=== PATIENT | male | born 1950 | race African-American/Black ===

== ENCOUNTER 2018-09-17 07:25 | Emergency (ER) | payer MEDICARE, OTHER ==
[~2018-09-17] VITALS: Ht 172.7 cm; Wt 86.4 kg
[~2018-09-17 07:25] MED LIST: AMLO10TA55 PO; CYAN500 PO; LINA5TAB PO; LISI1TAB11 PO; METF-960 PO; PANT40TA25 PO
[2018-09-17 07:36] VITALS: BP 136/96
[2018-09-17] MEDS ORDERED: BACITRACIN 0.9 GM PACKET OINTMENT TP ONE (08:00)
[2018-09-17] MEDS ORDERED: PERTUSS(ACELL),DIPH,TET VAC/PF 0.5 ML VIAL IM ONE (08:00)
== END 2018-09-17 08:44 | disposition home or self-care (01) ==
LOC: EMS 07:28
DX: S91.011A Laceration without foreign body, right ankle, initial encounter (principal); E11.9 Type 2 diabetes mellitus without complications; I10 Essential (primary) hypertension; Z79.84 Long term (current) use of oral hypoglycemic drugs; Z79.899 Other long term (current) drug therapy; Z98.890 Other specified postprocedural states; X99.9XXA Assault by unspecified sharp object, initial encounter; Y93.89 Activity, other specified; Y92.89 Other specified places as the place of occurrence of the external cause; Y99.8 Other external cause status
CPT/HCPCS: 90471; 90715

== ENCOUNTER 2024-12-16 08:45 | Inpatient (IN) | payer MEDICARE, OTHER ==
[~2024-12-16] VITALS: Ht 172.7 cm; Wt 68.7 kg
[~2024-12-16 08:45] MED LIST changes: -CYAN500 PO; +CYAN500T56 PO; -LINA5TAB PO; +METF-1211 PO; -METF-960 PO; -PANT40TA25 PO
[2024-12-16] MEDS ORDERED: 0.9% SODIUM CHLORIDE 10 ML SYRINGE IVP PRN (09:15)
[2024-12-16] MEDS: ACETAMINOPHEN 500 MG TABLET PO ONE (09:32)
[2024-12-16] MEDS: SODIUM CHLORIDE 0.9% 2,100 ML IV ONE (09:33)
[2024-12-16 09:48] LABS: BASOPHILS % (AUTO) 0.2 % (0.0-2.0); EOSINOPHILS % (AUTO) 0 % (1.0-6.0); HEMATOCRIT 42.2 % (41-53); HEMOGLOBIN 13.6 g/dL (13.5-17.5); LYMPHOCYTES # (AUTO) 0.3 K/uL (1.0-4.8); MEAN CORPUSCULAR HEMOGLOBIN 28.6 pg (26.0-34.0); MEAN CORPUSCULAR HGB CONC 32.1 G/dL (31.0-37.0); MEAN CORPUSCULAR VOLUME 89 fL (80-100); MONOCYTES # (AUTO) 1.4 K/uL (0.1-1.0); MONOCYTES % (AUTO) 10.1 % (2.0-9.0); NEUTROPHILS # (AUTO) 12.2 K/uL (1.8-7.7); PLATELET COUNT (AUTO) 197 K/uL (150-450); RED BLOOD CELL COUNT(AUTO) 4.75 MIL/uL (4.50-5.90); RED CELL DISTRIBUTION WIDTH 15.3 % (11.5-14.5); WHITE BLOOD COUNT (AUTO) 13.9 K/uL (4.5-11.0)
[2024-12-16 09:50] LABS: NEUTROPHILS % (AUTO) 87.7 % (40.0-70.0)
[2024-12-16 09:50] LABS: COVID AG,FIA SOURCE NASAL SWAB
[2024-12-16 09:58] LABS: ANION GAP 12 mmol/L (8-16); CALCIUM, TOTAL 8.8 mg/dL (8.8-10.5); CARBON DIOXIDE 24 mmol/L (22-29); CHLORIDE 104 mmol/L (98-107); CREATININE 1.96 mg/dL (0.60-1.30); GLOMERULAR FILTR. RATE CALC 40 mL/min (>60); GLUCOSE,RANDOM 191 mg/dL (70-110); POTASSIUM 4.6 mmol/L (3.5-5.1); SODIUM SERUM 140 mmol/L (136-145); UREA NITROGEN, BLOOD 37 mg/dL (7-18)
[2024-12-16 10:05] LABS: ALANINE AMINOTRANSFERASE 18 U/L (12-78); ALBUMIN 3.8 g/dL (3.4-5.0); ALKALINE PHOSPHATASE 118 U/L (46-116); ASPARTATE AMINOTRANSFERASE 16 U/L (15-37); BILIRUBIN,TOTAL 0.6 mg/dL (0.1-1.0); TOTAL PROTEIN, SERUM 7.3 g/dL (6.4-8.2)
[2024-12-16 10:09] LABS: LACTIC ACID 2.5 mmol/L (0.4-2.0)
[2024-12-16 10:14] LABS: INFLUENZA TYPE B NEGATIVE FOR TYPE B (NEGATIVE); SARS-COV2 (COVID) ANTIGEN,FIA Negative (Negative)
[2024-12-16 10:21] LABS: INFLUENZA TYPE A POSITIVE FOR TYPE A (NEGATIVE)
[2024-12-16 10:22] LABS: TROPONIN I-HIGH SENSITIVITY 16 ng/L (<76)
[2024-12-16 10:36] LABS: APPEARANCE,URINE CLEAR (CLEAR); BILIRUBIN,URINE NEGATIVE (NEGATIVE); COLOR,URINE LIGHT YELLOW (YELLOW); GLUCOSE, URINE (UA) TRACE mg/dL (NEGATIVE); KETONES,URINE TRACE mg/dL (NEGATIVE); LEUKOCYTE ESTERASE ,URINE NEGATIVE (NEGATIVE); NITRATE,URINE NEGATIVE (NEGATIVE); OCCULT BLOOD,URINE SMALL (NEGATIVE); PROTEIN,URINE 30-70 mg/dL (NEGATIVE); SPECIFIC GRAVITIY, URINE 1.017 (1.003-1.030); UROBILINOGEN,URINE <=1.0 mg/dL (<=1.0)
[2024-12-16 11:01] LABS: BACTERIA,URINE None Seen /HPF (None Seen); RBC,URINE None Seen /HPF (0-2); SQUAMOUS EPITHELIAL CELL,UR Few /LPF (None Seen); WBC,URINE None Seen /HPF (0-5)
[2024-12-16] MEDS: CEFEPIME HCL 2 GM in DEXTROSE 5%-WATER 50 ML IV ONE (11:27)
[2024-12-16] MEDS: VANCOMYCIN 1.5 GM/WATER(PEG) 300 ML IV ONE (11:31)
[2024-12-16] MEDS ORDERED: LOSA-382 PO (16:46)
[2024-12-16] MEDS ORDERED: SPIR50TA27 PO (16:46)
[2024-12-16] MEDS ORDERED: METF-1211 PO (16:46)
[2024-12-16] MEDS ORDERED: CHOL200059 PO (16:46)
[2024-12-16] MEDS ORDERED: SIMV-261 PO (16:46)
[2024-12-16] MEDS ORDERED: DOCU-385 PO (16:46)
[2024-12-16] MEDS ORDERED: DOCUSATE SODIUM 100 MG CAPSULE PO PRN (17:45)
[2024-12-16] MEDS ORDERED: ALBUTEROL SULFATE 2.5 MG/0.5 ML NEB SOLUTION NEB PRN (17:45)
[2024-12-16] MEDS ORDERED: IPRATROPIUM BROMIDE 0.5 MG/2.5 ML NEB SOLUTION NEB PRN (17:45)
[2024-12-16] MEDS ORDERED: MORPHINE SULFATE 2 MG/ML SYRINGE IVP PRN (17:45)
[2024-12-16] MEDS ORDERED: BISACODYL 10 MG RECTAL RECTAL SUPPOSITORY PR PRN (17:45)
[2024-12-16] MEDS ORDERED: ONDANSETRON HCL 4 MG/2 ML VIAL IVP PRN (17:45)
[2024-12-16] MEDS ORDERED: HYDROCODONE/ACETAMINOPHEN 5-325 MG TABLET PO PRN (17:45)
[2024-12-16] MEDS ORDERED: MAGNESIUM HYDROXIDE SUSPENSION 30 ML UDCUP PO PRN (17:45)
[2024-12-16] MEDS: OSELTAMIVIR PHOSPHATE 75 MG CAPSULE PO ONE (18:07)
[2024-12-16] MEDS: PIPERACILLIN/TAZO 3.375 GM/D5W 50 ML IV ONE (18:08)
[2024-12-16] MEDS: ACETAMINOPHEN 325 MG TABLET PO PRN (18:12)
[2024-12-16 18:30] VITALS: BP 133/74; PULSE 116; RESP 18; TEMP 98.6; O2SAT 97
[2024-12-16 19:47] VITALS: BP 128/67; PULSE 103; RESP 18; TEMP 98.2; O2SAT 95
[2024-12-16] MEDS: DOCUSATE SODIUM 100 MG CAPSULE PO SCH (20:22)
[2024-12-16] MEDS: SIMVASTATIN 40 MG TABLET PO SCH (20:22)
[2024-12-16] MEDS: HEPARIN SODIUM,PORCINE 5,000 UNITS/ML VIAL SQ SCH (23:36)
[2024-12-16] MEDS: ZOLPIDEM TARTRATE 5 MG TABLET PO PRN (23:41)
[2024-12-17 05:31] VITALS: BP 131/73; PULSE 115; RESP 18; TEMP 98.3
[2024-12-17 07:50] LABS: CALCIUM, TOTAL 9.1 mg/dL (8.8-10.5); CREATININE 1.84 mg/dL (0.60-1.30); POTASSIUM 5.3 mmol/L (3.5-5.1)
[2024-12-17 08:35] VITALS: BP 124/71; PULSE 120; RESP 18; TEMP 98.7; O2SAT 96
[2024-12-17] MEDS: VANCOMYCIN HCL 1 GM/D5% WATER 200 ML IV SCH (08:48)
[2024-12-17] MEDS: CHOLECALCIFEROL (VIT D3) 2,000 UNITS [50 MCG] TABLET PO SCH (08:49)
[2024-12-17] MEDS: LOSARTAN POTASSIUM 50 MG TABLET PO SCH (08:49)
[2024-12-17] MEDS: OSELTAMIVIR PHOSPHATE 30 MG CAPSULE PO SCH (08:49)
[2024-12-17] MEDS: PANTOPRAZOLE SODIUM 40 MG/VIAL IVP SCH (08:49)
[2024-12-17] MEDS: SPIRONOLACTONE 50 MG TABLET PO SCH (08:49)
[2024-12-17] MEDS ORDERED: SODIUM CHLORIDE 0.9% 500 ML IV ONE (09:06)
[2024-12-17 12:16] VITALS: BP 128/62; PULSE 115; RESP 18; TEMP 97.9; O2SAT 99
[2024-12-17 16:40] VITALS: BP 100/59; PULSE 116; RESP 17; TEMP 98; O2SAT 100
[2024-12-17 20:00] VITALS: BP 109/61; PULSE 121; RESP 18; O2SAT 100
[2024-12-18] VITALS (7 sets, daily range): BP systolic 91–124; BP diastolic 49–78; PULSE 87–105; RESP 17–19; TEMP 97.5–98.6; O2SAT 95–100
[2024-12-18 08:21] LABS: CALCIUM, TOTAL 8.6 mg/dL (8.8-10.5); CREATININE 1.73 mg/dL (0.60-1.30); POTASSIUM 4.7 mmol/L (3.5-5.1); VANCOMYCIN,RANDOM 11.6 mcg/mL (25.0-50.0)
[2024-12-18 11:50] LABS: BASOPHILS % (AUTO) 0.4 % (0.0-2.0); EOSINOPHILS % (AUTO) 0.1 % (1.0-6.0); HEMATOCRIT 39.6 % (41-53); HEMOGLOBIN 12.7 g/dL (13.5-17.5); LYMPHOCYTES # (AUTO) 0.8 K/uL (1.0-4.8); LYMPHOCYTES % (AUTO) 6.7 % (22.0-44.0); MEAN CORPUSCULAR HEMOGLOBIN 28.6 pg (26.0-34.0); MEAN CORPUSCULAR HGB CONC 32.1 G/dL (31.0-37.0); MEAN CORPUSCULAR VOLUME 89 fL (80-100); MONOCYTES # (AUTO) 1.4 K/uL (0.1-1.0); MONOCYTES % (AUTO) 10.7 % (2.0-9.0); NEUTROPHILS # (AUTO) 10.3 K/uL (1.8-7.7); NEUTROPHILS % (AUTO) 82.1 % (40.0-70.0); PLATELET COUNT (AUTO) 167 K/uL (150-450); RED BLOOD CELL COUNT(AUTO) 4.45 MIL/uL (4.50-5.90); RED CELL DISTRIBUTION WIDTH 15.4 % (11.5-14.5); WHITE BLOOD COUNT (AUTO) 12.6 K/uL (4.5-11.0)
[2024-12-19 03:58] VITALS: BP 123/72; PULSE 90; RESP 18; TEMP 97.8; O2SAT 97
[2024-12-19 07:12] LABS: CALCIUM, TOTAL 8.4 mg/dL (8.8-10.5); CREATININE 1.6 mg/dL (0.60-1.30); POTASSIUM 4.4 mmol/L (3.5-5.1)
[2024-12-19] MEDS: VANCOMYCIN 1.25 GM/WATER(PEG) 250 ML IV SCH (07:51)
[2024-12-19 08:26] VITALS: BP 104/62; PULSE 93; RESP 18; TEMP 98.1; O2SAT 100
[2024-12-19 12:04] VITALS: BP 111/60; PULSE 89; RESP 18; TEMP 98.2; O2SAT 98
[2024-12-19 17:25] VITALS: BP 100/59; PULSE 89; RESP 18; TEMP 98.1; O2SAT 98
[2024-12-19 20:15] VITALS: BP 119/73; PULSE 108; RESP 19; O2SAT 98
[2024-12-20 00:30] VITALS: BP 128/64; PULSE 90; RESP 18; TEMP 97.8; O2SAT 96
[2024-12-20 06:22] VITALS: BP 94/50; PULSE 89; RESP 20; TEMP 97.7; O2SAT 99
[2024-12-20 07:09] LABS: CALCIUM, TOTAL 8.7 mg/dL (8.8-10.5); CREATININE 1.58 mg/dL (0.60-1.30); POTASSIUM 4.5 mmol/L (3.5-5.1)
[2024-12-20 08:00] VITALS: BP 105/63; PULSE 97; RESP 18; TEMP 98; O2SAT 100
[2024-12-20 08:45] LABS: GLUCOMETER DEV NAME(LOC) 5N.2C; GLUCOSE,POINT OF CARE 91 MG/DL (70-110)
[2024-12-20 11:00] VITALS: BP 99/63; PULSE 72; RESP 18; TEMP 97.6; O2SAT 99
[2024-12-20 20:11] VITALS: BP 156/53; PULSE 107; RESP 20; TEMP 97.4; O2SAT 98
[2024-12-21 00:30] VITALS: BP 97/58; PULSE 83; RESP 17; TEMP 97.7; O2SAT 97
[2024-12-21 06:04] VITALS: BP 105/49; PULSE 83; RESP 17; TEMP 97.6; O2SAT 95
[2024-12-21 07:25] LABS: CALCIUM, TOTAL 8.5 mg/dL (8.8-10.5); CREATININE 1.76 mg/dL (0.60-1.30); POTASSIUM 4.5 mmol/L (3.5-5.1); VANCOMYCIN,RANDOM 20.9 mcg/mL (25.0-50.0)
[2024-12-21 07:36] VITALS: BP 119/71; PULSE 98; RESP 18; TEMP 97.9; O2SAT 98
[2024-12-21 11:45] VITALS: BP 109/66; PULSE 88; RESP 17; TEMP 98; O2SAT 98
[2024-12-21 12:11] LABS: GLUCOMETER DEV NAME(LOC) 5S.2D; GLUCOSE,POINT OF CARE 117 MG/DL (70-110)
[2024-12-21 15:36] VITALS: BP 116/67; PULSE 86; RESP 17; TEMP 98.2; O2SAT 99
[2024-12-21 17:55] LABS: BASOPHILS % (AUTO) 0.3 % (0.0-2.0); EOSINOPHILS % (AUTO) 1.5 % (1.0-6.0); HEMATOCRIT 41.2 % (41-53); HEMOGLOBIN 13.7 g/dL (13.5-17.5); LYMPHOCYTES # (AUTO) 1.2 K/uL (1.0-4.8); LYMPHOCYTES % (AUTO) 19.9 % (22.0-44.0); MEAN CORPUSCULAR HEMOGLOBIN 29.6 pg (26.0-34.0); MEAN CORPUSCULAR HGB CONC 33.4 G/dL (31.0-37.0); MEAN CORPUSCULAR VOLUME 89 fL (80-100); MONOCYTES # (AUTO) 0.7 K/uL (0.1-1.0); MONOCYTES % (AUTO) 11.2 % (2.0-9.0); NEUTROPHILS # (AUTO) 4.1 K/uL (1.8-7.7); NEUTROPHILS % (AUTO) 67.1 % (40.0-70.0); PLATELET COUNT (AUTO) 233 K/uL (150-450); RED BLOOD CELL COUNT(AUTO) 4.65 MIL/uL (4.50-5.90); RED CELL DISTRIBUTION WIDTH 14.8 % (11.5-14.5); WHITE BLOOD COUNT (AUTO) 6.1 K/uL (4.5-11.0)
[2024-12-21 20:40] VITALS: BP 128/73; PULSE 77; RESP 16; TEMP 97.9; O2SAT 97
[2024-12-21 20:40] LABS: GLUCOMETER DEV NAME(LOC) 5S.2D; GLUCOSE,POINT OF CARE 135 MG/DL (70-110)
[2024-12-21] MEDS ORDERED: DEXTROSE 50%-WATER 25 GM/50 ML SYRINGE IVP PRN (22:00)
[2024-12-21] MEDS: INSULIN LISPRO 100 UNITS/ML SQ PRN (22:22)
[2024-12-22 00:30] VITALS: BP 106/59; PULSE 90; RESP 18; TEMP 98; O2SAT 97
[2024-12-22 04:29] VITALS: BP 128/72; PULSE 58; RESP 18; TEMP 98.3; O2SAT 98
[2024-12-22 06:45] LABS: GLUCOMETER DEV NAME(LOC) 5N.1D; GLUCOSE,POINT OF CARE 147 MG/DL (70-110)
[2024-12-22] MEDS: VANCOMYCIN HCL 1 GM/D5% WATER 200 ML IV SCH (08:00)
[2024-12-22 08:24] VITALS: BP 122/69; PULSE 90; RESP 18; TEMP 97.9; O2SAT 95
[2024-12-22] MEDS ORDERED: SODIUM CHLORIDE 0.9% 500 ML IV ONE (08:38)
[2024-12-22 08:55] LABS: CALCIUM, TOTAL 8.5 mg/dL (8.8-10.5); CREATININE 1.63 mg/dL (0.60-1.30); POTASSIUM 4.6 mmol/L (3.5-5.1)
[2024-12-22 11:45] LABS: GLUCOMETER DEV NAME(LOC) 6S.1D; GLUCOSE,POINT OF CARE 131 MG/DL (70-110)
[2024-12-22 15:39] VITALS: BP 108/58; PULSE 72; RESP 18; TEMP 98; O2SAT 98
[2024-12-22 17:05] LABS: GLUCOMETER DEV NAME(LOC) 6N.2B; GLUCOSE,POINT OF CARE 100 MG/DL (70-110)
== END 2024-12-22 16:00 | disposition home or self-care (01) | DRG 871 ==
LOC: EMS 08:48 → EDH 12:05 → 5S 18:45 → 6N 12-22 02:01
PROVIDERS: ADMIT Hospitalist; ATTEND Hospitalist
DX: A41.9 Sepsis, unspecified organism (principal); G92.9 Unspecified toxic encephalopathy; N17.9 Acute kidney failure, unspecified; E11.22 Type 2 diabetes mellitus with diabetic chronic kidney disease; I12.9 Hypertensive chronic kidney disease with stage 1 through stage 4 chronic kidney disease, or unspecified chronic kidney disease; Z20.822 Contact with and (suspected) exposure to COVID-19; E78.5 Hyperlipidemia, unspecified; N18.9 Chronic kidney disease, unspecified; E87.5 Hyperkalemia; J10.1 Influenza due to other identified influenza virus with other respiratory manifestations
CPT/HCPCS: 71045; 80048; 80053; 80202; 81001; 82962; 83605; 84132; 84145; 84484; 85025; 87040; 87804; 97116; 97162; 97165; 97535; 99285; G0378; J0692; J1644; J2470; J2543; J3370; J7040; J7060; 36415-L1; 36415-TC